=== PATIENT | male | born 1990 | race Caucasian/White ===

== ENCOUNTER 2019-03-26 22:34 | Emergency (ER) | payer SELFPAY ==
[~2019-03-26] VITALS: Ht 180.3 cm; Wt 81.7 kg
--- NOTE | 2019-03-26 22:40 | NUR ---
PT NOT IN LOBBY WHEN CALLED FOR TRIAGE
--- NOTE | 2019-03-26 23:19 | NUR ---
BLADDER SCAN >[phone]. MD INFORMED.
--- NOTE | 2019-03-26 23:24 | NUR ---
UA OBTAINED AND TUBED TO LAB. POC DISCUSSED. PT AND FAMILY DENY FURTHER NEEDS AT THIS TIME.
[2019-03-26 23:42] LABS: MICROSCOPIC NOT IND
[2019-03-26 23:47] LABS: CULTURE INDICATED? NO
[2019-03-27 00:18] VITALS: BP 139/74
== END 2019-03-27 00:22 | disposition home or self-care (01) ==
LOC: ED 23:19
DX: R39.15 Urgency of urination (principal)
CPT/HCPCS: 81003; 99284